=== PATIENT | female | born 1950 | race Caucasian/White ===

== ENCOUNTER 2022-01-22 05:45 | Inpatient (IN) ==
[2022-01-22] MEDS ORDERED: VANCOMYCIN INJ 1,000 MG in SODIUM CHLORIDE 0.9% 250 ML IV ONE (06:30)
[2022-01-22 06:53] LABS: PT Patient Result 11.4 SECS (10.5-12.0); Partial Thromboplastin Time 24.8 SECS (23.8-32.1)
[2022-01-22] MEDS ORDERED: DIAZEPAM 5 MG TABLET PO STA (07:25)
[2022-01-22] MEDS ORDERED: ACETAMINOPHEN 500 MG TABLET PO STA (07:25)
[2022-01-22] MEDS ORDERED: SCOPOLAMINE 1.5 MG PATCH TRANSDERM ONE (07:29)
[2022-01-22] MEDS ORDERED: SCOPOLAMINE 1.5 MG PATCH TRANSDERM STA (07:30)
[2022-01-22] MEDS ORDERED: BUPIVACAINE MPF 0.5% 30 ML VIAL ONE (09:04)
[2022-01-22] MEDS ORDERED: buprenorphine HCL 0.3 MG/ML VIAL ONE (09:04)
[2022-01-22] MEDS ORDERED: ROPIVACAINE 0.5% 30 ML VIAL ONE (09:07)
[2022-01-22] MEDS ORDERED: DEXAMETHASONE 4 MG/1 ML VIAL ONE (09:07)
[2022-01-22] MEDS ORDERED: MIDAZOLAM 2 MG/2 ML VIAL ONE ×2 (09:07→10:07)
[2022-01-22] MEDS ORDERED: DEXMEDETOMIDINE 200 MCG/2 ML VIAL ONE (09:07)
[2022-01-22] MEDS ORDERED: LIDOCAINE 1% 5 ML VIAL ONE (09:07)
[2022-01-22] MEDS: LACTATED RINGERS 1,000 ML IV SCH ×3 (09:34→20:32)
[2022-01-22] MEDS ORDERED: PROMETHAZINE 25 MG/1 ML VIAL IM PRN (10:01)
[2022-01-22] MEDS ORDERED: MAGNESIUM HYDROXIDE SUSP 30 ML UDCUP PO PRN (10:01)
[2022-01-22] MEDS ORDERED: LACTULOSE 20 GM/30 ML UDCUP PO PRN (10:01)
[2022-01-22] MEDS ORDERED: diphenhydrAMINE CAP 25 MG CAPSULE PO PRN (10:01)
[2022-01-22] MEDS ORDERED: BISACODYL 10 MG SUPP RECTAL PRN (10:01)
[2022-01-22] MEDS ORDERED: TEMAZEPAM 7.5 MG CAPSULE PO PRN (10:01)
[2022-01-22] MEDS ORDERED: ONDANSETRON 4 MG/2 ML VIAL ONE (10:03)
[2022-01-22] MEDS ORDERED: MORPHINE 2 MG/1 ML SYRINGE IV PRN ×2 (10:10)
[2022-01-22] MEDS ORDERED: TRANEXAMIC ACID 1,000 MG/10 ML VIAL ONE (10:27)
[2022-01-22] MEDS: ONDANSETRON 4 MG/2 ML VIAL IV PRN (13:00)
[2022-01-22] MEDS: GABAPENTIN 400 MG CAPSULE PO SCH ×2 (17:39→20:30)
[2022-01-22] MEDS: DOCUSATE SODIUM 100 MG CAPSULE PO SCH (20:30)
[2022-01-22] MEDS: COLESTIPOL 1 GM TABLET PO SCH (20:30)
[2022-01-22] MEDS: METOPROLOL SUCCINATE XL 50 MG TABLET PO SCH (20:31)
[2022-01-23] MEDS: LACTATED RINGERS 1,000 ML IV SCH (05:23)
[2022-01-23 05:43] LABS: Basophils % 0.1 % (0.0-0.8); Eosinophils % 0.1 % (0.00-10.9); Hematocrit 37.8 VOL% (35.7-47.0); Hemoglobin 11.9 GM/DL (12.0-16.0); Immature Granulocytes % 0.3 %; Immature Granulocytes Absolute 0.04 #; Lymphocytes % 17.1 % (21.3-54.2); Mean Corpuscular HGB Conc 31.5 GM/DL (32-36); Mean Corpuscular Volume 97.2 FL (87-102); Mean Platelet Volume 12.1 FL (9.6-12.0); Monocytes # 1.3 10*3/uL (0.11-0.8); Monocytes % 11.6 % (1.7-12.7); Neutrophils % 70.8 % (38.7-73.9); Platelet Count 211 T/CUMM (130-400); Red Blood Count 3.89 MC/CUMM (3.8-5.5); Red Cell Distribution Width 14.1 % (9.3-17.3); White Blood Count 11.6 T/CUMM (4-12)
[2022-01-23 06:14] LABS: Calcium 8.9 MG/DL (8.5-10.1); Osmolality,Calculated 278.4 MOS/KG (273-304); Potassium 4.4 MMOL/L (3.5-5.1)
[2022-01-23] MEDS: COLESTIPOL 1 GM TABLET PO SCH ×2 (08:42→20:46)
[2022-01-23] MEDS: GABAPENTIN 400 MG CAPSULE PO SCH ×4 (08:42→20:47)
[2022-01-23] MEDS: FONDAPARINUX 2.5 MG/0.5 ML SYRINGE SUBCUT SCH (08:42)
[2022-01-23] MEDS: DOCUSATE SODIUM 100 MG CAPSULE PO SCH ×2 (08:43→20:47)
[2022-01-23] MEDS: FLUoxetine 20 MG CAPSULE PO SCH (08:43)
[2022-01-23] MEDS: PANTOPRAZOLE 40 MG TABLET PO SCH (08:43)
[2022-01-23] MEDS: ONDANSETRON 4 MG/2 ML VIAL IV PRN ×2 (10:45→18:42)
[2022-01-23 19:06] LABS: Bacteria,Urine Occasional /HPF (Few); Bilirubin,Urine Negative (Negative); Blood, Urine Small mg/dL (Negative); Glucose,Urine (UA) Negative (Negative); Ketones,Urine Negative (Negative); Mucus,Urine Few /LPF (Occasional); Nitrite,Urine Negative (Negative); Protein,Urine Negative (Negative); RBC,Urine 14 /HPF (0-4); Squamous Epithelial Cell,Urine Occasional /HPF (0-10); Urine Appearance Clear (Clear); Urine Color Yellow (Yellow); Urine Specific Gravity 1.025 (1.001-1.035); Urine Urobilinogen 0.2 eU/dL (<2.0)
[2022-01-23] MEDS: MORPHINE 2 MG/1 ML SYRINGE IV PRN (20:47)
[2022-01-23] MEDS: METOPROLOL SUCCINATE XL 50 MG TABLET PO SCH (20:48)
[2022-01-24] MEDS ORDERED: ACETAMINOPHEN 325 MG TABLET PO PRN (04:59)
[2022-01-24] MEDS: ONDANSETRON 4 MG/2 ML VIAL IV PRN (05:14)
[2022-01-24] MEDS: MORPHINE 2 MG/1 ML SYRINGE IV PRN (05:14)
[2022-01-24 05:25] LABS: Basophils % 0.1 % (0.0-0.8); Eosinophils % 0.3 % (0.00-10.9); Hematocrit 36.2 VOL% (35.7-47.0); Hemoglobin 11.4 GM/DL (12.0-16.0); Immature Granulocytes % 0.3 %; Immature Granulocytes Absolute 0.04 #; Lymphocytes # 2.3 10*3/uL (1.4-4.0); Lymphocytes % 19.1 % (21.3-54.2); Mean Corpuscular HGB Conc 31.5 GM/DL (32-36); Mean Corpuscular Volume 96.8 FL (87-102); Mean Platelet Volume 12.1 FL (9.6-12.0); Monocytes % 16.5 % (1.7-12.7); Neutrophils % 63.7 % (38.7-73.9); Platelet Count 183 T/CUMM (130-400); Red Blood Count 3.74 MC/CUMM (3.8-5.5); Red Cell Distribution Width 14.6 % (9.3-17.3); White Blood Count 11.8 T/CUMM (4-12)
[2022-01-24 05:51] LABS: Eosinophils 1 % (0-10); Hypochromia Slight; Lymphocytes 19 % (20-55); Microcytosis Slight; Platelet Estimate Adequate; Total Cells Counted 100
[2022-01-24 05:52] LABS: Albumin 2.6 G/DL (3.4-5.0); Calcium 8.8 MG/DL (8.5-10.1); Potassium 4.8 MMOL/L (3.5-5.1); Total Protein 6.5 G/DL (6.4-8.2)
[2022-01-24] MEDS: FONDAPARINUX 2.5 MG/0.5 ML SYRINGE SUBCUT SCH (08:28)
[2022-01-24] MEDS: COLESTIPOL 1 GM TABLET PO SCH ×2 (08:28→21:17)
[2022-01-24] MEDS: GABAPENTIN 400 MG CAPSULE PO SCH ×4 (08:28→21:17)
[2022-01-24] MEDS: PANTOPRAZOLE 40 MG TABLET PO SCH (08:29)
[2022-01-24] MEDS: FLUoxetine 20 MG CAPSULE PO SCH (08:29)
[2022-01-24] MEDS: DOCUSATE SODIUM 100 MG CAPSULE PO SCH ×2 (08:29→21:17)
[2022-01-24] MEDS ORDERED: TUBERCULIN SKIN TEST 0.1 ML SYRINGE INTRADERM ONE (16:00)
[2022-01-24] MEDS: METOPROLOL SUCCINATE XL 50 MG TABLET PO SCH (21:48)
[2022-01-25 06:45] LABS: Basophils # 0.1 10*3/uL (0.0-0.2); Basophils % 0.5 % (0.0-0.8); Eosinophils # 0.1 10*3/uL (0.0-0.87); Eosinophils % 1.1 % (0.00-10.9); Hematocrit 35.1 VOL% (35.7-47.0); Hemoglobin 11.2 GM/DL (12.0-16.0); Immature Granulocytes % 0.5 %; Immature Granulocytes Absolute 0.05 #; Lymphocytes # 2.1 10*3/uL (1.4-4.0); Lymphocytes % 22.3 % (21.3-54.2); Mean Corpuscular HGB Conc 31.9 GM/DL (32-36); Mean Corpuscular Volume 95.9 FL (87-102); Mean Platelet Volume 12.7 FL (9.6-12.0); Monocytes # 1.4 10*3/uL (0.11-0.8); Monocytes % 14.3 % (1.7-12.7); Neutrophils % 61.3 % (38.7-73.9); Platelet Count 186 T/CUMM (130-400); Red Blood Count 3.66 MC/CUMM (3.8-5.5); Red Cell Distribution Width 14.6 % (9.3-17.3); White Blood Count 9.6 T/CUMM (4-12)
[2022-01-25 07:05] LABS: Osmolality,Calculated 270.8 MOS/KG (273-304); Potassium 3.4 MMOL/L (3.5-5.1)
[2022-01-25] MEDS: DOCUSATE SODIUM 100 MG CAPSULE PO SCH (08:33)
[2022-01-25] MEDS: FLUoxetine 20 MG CAPSULE PO SCH (08:33)
[2022-01-25] MEDS: GABAPENTIN 400 MG CAPSULE PO SCH ×2 (08:34→13:56)
[2022-01-25] MEDS: COLESTIPOL 1 GM TABLET PO SCH (08:34)
[2022-01-25] MEDS: FONDAPARINUX 2.5 MG/0.5 ML SYRINGE SUBCUT SCH (08:34)
[2022-01-25] MEDS: PANTOPRAZOLE 40 MG TABLET PO SCH (08:34)
[2022-01-25] MEDS: MORPHINE 2 MG/1 ML SYRINGE IV PRN (08:35)
[2022-01-25] MEDS ORDERED: POTASSIUM CHLORIDE 10 MEQ TABLET PO SCH (09:00)
[2022-01-25 12:20] VITALS: BP 106/62
== END 2022-01-25 15:21 | disposition home health service (06) | DRG 470 ==
LOC: N.OR 05:45 → N.SDSINP 05:47 → N.3E 15:10
PROVIDERS: ADMIT Orthopaedic Surgery; ATTEND Orthopaedic Surgery